=== PATIENT | female | born 1945 | race Caucasian/White ===

== ENCOUNTER 2020-09-22 12:15 | Emergency (ER) | payer MEDICARE, MEDICAID ==
[~2020-09-22] VITALS: Ht 162.6 cm; Wt 74.5 kg
--- NOTE | 2020-09-22 12:32 | NUR ---
PT AMBULATORY FROM TRIAGE TO ROOM, CHANGED INTO GOWN. MONITORS IN PLACE. CALL LIGHT WITHIN REACH
[2020-09-22] MEDS ORDERED: SODIUM CHLORIDE 0.9% 1,000ML IVBOLUS ONE (13:00)
[2020-09-22 13:11] LABS: BASOPHILS % (AUTO) 1 % (0-1); EOSINOPHILS % (AUTO) 0 % (1-7); LYMPHOCYTES % (AUTO) 6 % (22-44); MEAN CORPUSCULAR HEMOGLOBIN 32.6 pg (27.0-34.8); MEAN CORPUSCULAR HGB CONC 33.8 g/dL (32.4-35.8); MEAN PLATELET VOLUME 7.4 fL (7.4-10.4); MONOCYTES % (AUTO) 3 % (2-9); NEUTROPHILS % (AUTO) 90 % (42-75); PLATELET COUNT 277 x10^3/uL (130-400); RED BLOOD COUNT 4.12 x10^6/uL (3.82-5.3); RED CELL DISTRIBUTION WIDTH 13.3 % (9.6-15.2)
[2020-09-22 13:22] LABS: ALANINE AMINOTRANSFERASE 14 U/L (12-78); ALBUMIN 3.8 g/dL (3.4-5.0); ANION GAP 8 mmol/L (5-15); CALCIUM 8.7 mg/dL (8.5-10.1); CHLORIDE 109 mmol/L (98-107); CREATININE 0.84 mg/dL (0.55-1.02)
[2020-09-22 13:24] LABS: ALKALINE PHOSPHATASE 67 U/L (45-117); BILIRUBIN,TOTAL 0.8 mg/dL (0.2-1.0); TOTAL PROTEIN 6.8 g/dL (6.4-8.2)
[2020-09-22] MEDS ORDERED: ONDANSETRON 2MG/ML, 2ML ONE (13:27)
[2020-09-22] MEDS ORDERED: ONDANSETRON 2MG/ML, 2ML IVPush ONE (13:30)
--- NOTE | 2020-09-22 13:32 | NUR ---
PT AMBULATORY TO [facility]
--- NOTE | 2020-09-22 13:35 | NUR ---
PT BACK FROM [facility]. [facility] [employer], WATCHING TV. NADN/VSS. CALL LIGHT WITHIN REACH
[2020-09-22 13:54] LABS: MICROSCOPIC INDICATED
[2020-09-22 14:05] LABS: MD SCAN
--- NOTE | 2020-09-22 14:24 | NUR ---
pt back from ct
[2020-09-22] MEDS ORDERED: OMNIPAQUE 350 MG/ML, 100ML BOTTLE ONE (14:28)
[2020-09-22 14:44] VITALS: BP 121/47
--- NOTE | 2020-09-22 14:44 | NUR ---
PT SITTING ON GURNEY, WATCHING TV CALMLY. NADN/VSS. CALL LIGHT WITHIN REACH. NO NEEDS AT THIS TIME
--- NOTE | 2020-09-22 15:47 | NUR ---
Patient given discharge instructions and RX, they have confirmed that they understand the instructions. Patient ambulatory with steady gait.
== END 2020-09-22 15:51 | disposition home or self-care (01) ==
LOC: ED 14:39
DX: K52.9 Noninfective gastroenteritis and colitis, unspecified (principal); E11.9 Type 2 diabetes mellitus without complications
CPT/HCPCS: 36415; 71045; 74177; 80053; 81001; 83690; 85025; 87086; 96361; 96374; 99285; J2405; J7030; Q9967